=== PATIENT | female | born 1985 | race African-American/Black ===

== ENCOUNTER 2018-01-23 22:14 | Emergency (ER) | payer OTHER ==
[~2018-01-23] VITALS: Ht 152.4 cm; Wt 99.8 kg
[2018-01-23] MEDS ORDERED: NOHOMEMEDICATIONS (22:22)
== END 2018-01-23 23:05 | disposition home or self-care (01) ==
LOC: ER 22:14
DX: S61.211A Laceration without foreign body of left index finger without damage to nail, initial encounter (principal); W25.XXXA Contact with sharp glass, initial encounter; Y93.89 Activity, other specified; Y92.89 Other specified places as the place of occurrence of the external cause; Y99.8 Other external cause status